=== PATIENT | male | born 1990 | race Caucasian/White ===

== ENCOUNTER 2022-08-31 06:07 | Emergency (ER) | payer BC ==
[~2022-08-31] VITALS: Ht 172.7 cm; Wt 91.6 kg
[~2022-08-31 06:07] MED LIST: FAMO20TA8 PO; TRAM50TA PO
[2022-08-31 06:30] VITALS: BP_SYST 113
--- NOTE | 2022-08-31 06:40 | NUR ---
Pt placed to ER bed 07. Pt c/o cough, congestion, and sinus pressure with light green sputum x 2 days. Pt also c/o chest discomfort when coughing. Reproducible chest wall pain with palpation. ROB LAWRENCE.
--- NOTE | 2022-08-31 06:48 | NUR ---
Dr. Becerra at bedside assessing pt.
--- NOTE | 2022-08-31 06:50 | NUR ---
X-ray at bedside.
--- NOTE | 2022-08-31 07:02 | NUR ---
Specimens collected and sent to lab for COVID and Influenza antigens.
[2022-08-31] MEDS ORDERED: IBUP-1969 PO (07:18)
[2022-08-31] MEDS ORDERED: D-ME118S48 PO (07:18)
[2022-08-31 07:27] VITALS: BP_SYST 113
--- NOTE | 2022-08-31 07:29 | NUR ---
Patient given written and verbal discharge instructions and verbalizes understanding. ER MD DR BACH discussed with patient the results and treatment provided. Patient in stable condition. ID arm band removed. Rx of BROMFED AND MOTRIN given. Patient educated on pain management and to follow up with PMD. Pain Scale. Opportunity for questions provided and answered. Medication side effect fact sheet provided.
== END 2022-08-31 07:27 | disposition home or self-care (01) ==
LOC: SED 06:07
DX: J06.9 Acute upper respiratory infection, unspecified (principal); R05.9 Cough, unspecified; R09.81 Nasal congestion; R07.81 Pleurodynia; Z88.8 Allergy status to other drugs, medicaments and biological substances; Z79.899 Other long term (current) drug therapy; Z20.822 Contact with and (suspected) exposure to COVID-19
CPT/HCPCS: 36415; 71045; 99284

== ENCOUNTER 2023-02-18 13:33 | Emergency (ER) | payer BC ==
[~2023-02-18] VITALS: Ht 172.7 cm; Wt 93.0 kg
[~2023-02-18 13:33] MED LIST changes: +D-ME118S48 PO; +IBUP-1969 PO
[2023-02-18 13:43] VITALS: BP_SYST 161
[2023-02-18 14:21] LABS: BASOPHILS % (AUTO) 0.5 % (0.0-2.0); EOSINOPHILS # (AUTO) 0.4 K/uL (0.0-0.4); HEMATOCRIT 45.3 % (36-54); HEMOGLOBIN 15.5 g/dL (14.0-18.0); LYMPHOCYTES # (AUTO) 2.4 K/uL (1.0-5.5); LYMPHOCYTES % (AUTO) 31.2 % (20.5-51.5); MEAN CORPUSCULAR HEMOGLOBIN 30 pg (27-31); MEAN CORPUSCULAR HGB CONC 34 % (32-36); MEAN CORPUSCULAR VOLUME 86 fL (79.0-98.0); MONOCYTES # (AUTO) 0.6 K/uL (0.0-1.0); MONOCYTES % (AUTO) 7.5 % (1.7-9.3); NEUTROPHILS # (AUTO) 4.3 K/uL (1.8-7.7); NEUTROPHILS % (AUTO) 55.8 % (40.0-70.0); PLATELET COUNT (AUTO) 276 K/uL (130-430); RED BLOOD CELL COUNT(AUTO) 5.26 MIL/uL (4.2-6.2); RED CELL DISTRIBUTION WIDTH 13.3 % (9.0-15.0); WHITE BLOOD COUNT (AUTO) 7.6 K/uL (4.8-10.8)
[2023-02-18 14:34] LABS: ANION GAP 10 (5-15); CALCIUM 8.6 mg/dL (8.4-11.0); CHLORIDE 103 mmol/L (98-107); CREATININE 0.94 mg/dL (0.55-1.30); GFR AFRICAN AMERICAN 120 mL/min (>90); GLUCOSE 97 mg/dL (70-99); UREA NITROGEN, BLOOD 12 mg/dL (8-21)
[2023-02-18 14:39] LABS: ALANINE AMINOTRANSFERASE 23 U/L (12-78); ALBUMIN 4.1 g/dL (3.4-4.8); ASPARTATE AMINOTRANSFERASE 18 U/L (10-37); C-REACTIVE PROTEIN QUANT < 0.2 mg/dL (0-0.5); TOTAL BILIRUBIN 0.3 mg/dL (0.0-1.0)
[2023-02-18] MEDS ORDERED: PSEU30TA36 PO (14:48)
[2023-02-18] MEDS ORDERED: IBUP-1971 PO (14:48)
[2023-02-18 15:31] VITALS: BP_SYST 161
== END 2023-02-18 15:29 | disposition home or self-care (01) ==
LOC: SED 13:33
DX: J32.9 Chronic sinusitis, unspecified (principal); R05.9 Cough, unspecified; J02.9 Acute pharyngitis, unspecified; Z88.8 Allergy status to other drugs, medicaments and biological substances; Z79.899 Other long term (current) drug therapy
CPT/HCPCS: 36415; 70486-TC; 76376; 80053; 83605; 85025; 86140; 99284

== ENCOUNTER 2023-09-26 14:56 | Emergency (ER) | payer BC ==
[~2023-09-26] VITALS: Ht 172.7 cm; Wt 95.3 kg
[~2023-09-26 14:56] MED LIST changes: +BROM118S61 PO; -D-ME118S48 PO; +IBUP-1971 PO; +PSEU30TA36 PO
[2023-09-26 15:09] VITALS: BP_SYST 141; PULSE 89; RESP 17; TEMP 97.6; O2SAT 99
[2023-09-26] MEDS ORDERED: IBUP-1969 PO (17:13)
[2023-09-26] MEDS ORDERED: HYDR-3917 PO (17:13)
[2023-09-26] MEDS ORDERED: IBUP800T54 PO (17:13)
[2023-09-26 17:19] VITALS: BP_SYST 141; PULSE 89; RESP 17; TEMP 97.6; O2SAT 99
[2023-09-26 17:42] LABS: INFLUENZA TYPE A Negative (NEGATIVE); INFLUENZA TYPE B NEGATIVE (NEGATIVE)
== END 2023-09-26 17:18 | disposition home or self-care (01) ==
LOC: SED 14:56
DX: S20.212A Contusion of left front wall of thorax, initial encounter (principal); J40 Bronchitis, not specified as acute or chronic; K21.9 Gastro-esophageal reflux disease without esophagitis; Z88.8 Allergy status to other drugs, medicaments and biological substances; Z79.899 Other long term (current) drug therapy; Z20.822 Contact with and (suspected) exposure to COVID-19; W09.8XXA Fall on or from other playground equipment, initial encounter; Y93.89 Activity, other specified; Y92.89 Other specified places as the place of occurrence of the external cause; Y99.8 Other external cause status
CPT/HCPCS: 36415; 71045; 99284